=== PATIENT | female | born 1985 | race Caucasian/White ===

== ENCOUNTER 2018-08-02 14:13 | Emergency (ER) | payer MEDICAID ==
[~2018-08-02] VITALS: Ht 167.6 cm; Wt 68.5 kg
[2018-08-02 14:18] VITALS: BP 115/69; Ht 167.6 cm; Wt 68.5 kg
== END 2018-08-02 14:50 | disposition home or self-care (01) ==
LOC: ED 14:13
DX: F41.9 Anxiety disorder, unspecified (principal); Z90.49 Acquired absence of other specified parts of digestive tract; Z98.890 Other specified postprocedural states

== ENCOUNTER 2018-08-18 16:56 | Emergency (ER) | payer MEDICAID ==
[~2018-08-18] VITALS: Ht 167.6 cm; Wt 68.5 kg
[2018-08-18 16:58] VITALS: Ht 167.6 cm; Wt 68.5 kg
[2018-08-18 19:22] LABS: microscopic required? YES; urine erythrocyte TRACE (NEGATIVE)
[2018-08-18 19:23] LABS: BASOPHIL % 0.3 % (0-2); PLATELET COUNT 266 x10^3mcL (130-400); RED CELL DISTRIBUTION WIDTH 13.9 % (11.5-14.5)
[2018-08-18 19:39] LABS: CALCIUM 8.8 mg/dL (8.5-10.1); CARBON DIOXIDE 27.3 mmol/L (21-32); CHLORIDE SERUM 105 mmol/L (98-107); CREATININE SERUM 0.8 mg/dL (0.6-1.0); GFR1 > 60 mL/min; GLUCOSE SERUM 100 mg/dL (74-106); POTASSIUM SERUM 3.8 mmol/L (3.5-5.1); SODIUM SERUM 140 mmol/L (136-145)
[2018-08-18 19:48] VITALS: BP 136/89
[2018-08-18 19:51] LABS: ALBUMIN 3.6 g/dL (3.4-5.0); ALKALINE PHOSPHATASE 37 U/L (46-116); ALT/SGPT 20 U/L (14-59); AST/SGOT 11 U/L (15-37); BILIRUBIN TOTAL 0.4 mg/dL (0.20-1.00); CHOLESTEROL 260 mg/dL (<200); LIPASE 131 IU/L (73-393); T4(THYROXINE) 9.7 ug/dL (4.7-13.3); TOTAL PROTEIN, SERUM 7.6 g/dL (6.4-8.2)
[2018-08-18 19:52] LABS: HDL CHOLESTEROL 83 mg/dL (40-60)
[2018-08-18 20:00] LABS: C REACTIVE PROTEIN < 0.2 mg/dL (<=0.9)
[2018-08-18 20:01] LABS: AMPHETAMINE QUAL UR NONE DETECTED (See below)
[2018-08-18 20:10] LABS: ERYTHROCYTE SED RATE 17 mm/hr (0-20)
== END 2018-08-18 20:05 | disposition home or self-care (01) ==
LOC: ED 16:56
PROVIDERS: Emergency Medicine
DX: F41.9 Anxiety disorder, unspecified (principal); Z98.890 Other specified postprocedural states; Z90.89 Acquired absence of other organs
CPT/HCPCS: 36415

== ENCOUNTER 2018-09-10 22:07 | Emergency (ER) | payer MEDICAID ==
[~2018-09-10] VITALS: Ht 167.6 cm; Wt 68.5 kg
[2018-09-10 22:18] VITALS: Ht 167.6 cm; Wt 68.5 kg
[2018-09-11 01:37] VITALS: BP 126/77
== END 2018-09-11 01:37 | disposition home or self-care (01) ==
LOC: ED 22:07
DX: R51 Headache (principal); R11.0 Nausea; H53.8 Other visual disturbances; F41.9 Anxiety disorder, unspecified; Z90.49 Acquired absence of other specified parts of digestive tract; Z98.890 Other specified postprocedural states
CPT/HCPCS: J1885

== ENCOUNTER 2018-10-03 15:38 | Emergency (ER) | payer MEDICAID ==
[~2018-10-03] VITALS: Ht 167.6 cm; Wt 66.7 kg
[2018-10-03 15:42] VITALS: Ht 167.6 cm; Wt 66.7 kg
[2018-10-03 16:56] VITALS: BP 122/67
== END 2018-10-03 16:56 | disposition home or self-care (01) ==
LOC: ED 15:38
DX: M54.5 Low back pain (principal); F41.9 Anxiety disorder, unspecified; Z90.89 Acquired absence of other organs; Z98.890 Other specified postprocedural states

== ENCOUNTER 2019-03-27 15:09 | Emergency (ER) | payer MEDICAID ==
[~2019-03-27] VITALS: Ht 167.6 cm; Wt 66.7 kg
[2019-03-27 15:12] VITALS: Ht 167.6 cm; Wt 66.7 kg
[2019-03-27 18:45] VITALS: BP 125/87
== END 2019-03-27 18:45 | disposition home or self-care (01) ==
LOC: ED 15:09
DX: F41.0 Panic disorder [episodic paroxysmal anxiety] (principal); Z90.89 Acquired absence of other organs

== ENCOUNTER 2019-06-14 19:12 | Emergency (ER) | payer MEDICAID ==
[~2019-06-14] VITALS: Ht 167.6 cm; Wt 69.9 kg
[2019-06-14 19:30] VITALS: Ht 167.6 cm; Wt 69.9 kg
[2019-06-14 20:04] VITALS: BP 120/63
== END 2019-06-14 20:04 | disposition home or self-care (01) ==
LOC: ED 19:12
DX: R51 Headache (principal); Z90.49 Acquired absence of other specified parts of digestive tract
CPT/HCPCS: J1885; J2765

== ENCOUNTER 2019-06-18 18:49 | Emergency (ER) | payer MEDICAID ==
[~2019-06-18] VITALS: Ht 167.6 cm; Wt 72.1 kg
[2019-06-18 18:55] VITALS: Ht 167.6 cm; Wt 72.1 kg
[2019-06-18 20:14] VITALS: BP 134/58
== END 2019-06-18 20:14 | disposition home or self-care (01) ==
LOC: ED 18:49
DX: R51 Headache (principal); Z98.890 Other specified postprocedural states; Z90.49 Acquired absence of other specified parts of digestive tract
CPT/HCPCS: J1885

== ENCOUNTER 2019-06-24 13:54 | Emergency (ER) | payer MEDICAID ==
[~2019-06-24] VITALS: Ht 167.6 cm; Wt 73.5 kg
[2019-06-24 14:00] VITALS: Ht 167.6 cm; Wt 73.5 kg
[2019-06-24 16:18] LABS: BASOPHIL % 0.5 % (0-2); PLATELET COUNT 343 x10^3mcL (130-400); RED CELL DISTRIBUTION WIDTH 14.4 % (11.5-14.5)
[2019-06-24 16:25] LABS: UA SPECIFIC GRAVITY >=1.030 (1.005-1.035); microscopic required? YES; urine erythrocyte NEGATIVE (NEGATIVE)
[2019-06-24 16:28] LABS: CARBON DIOXIDE 31.4 mmol/L (21-32); CHLORIDE SERUM 105 mmol/L (98-107); CREATININE SERUM 0.8 mg/dL (0.6-1.0); GFR1 > 60 mL/min; GLUCOSE SERUM 67 mg/dL (74-106); POTASSIUM SERUM 3.8 mmol/L (3.5-5.1); SODIUM SERUM 142 mmol/L (136-145)
[2019-06-24 16:33] LABS: ALBUMIN 4.1 g/dL (3.4-5.0); ALKALINE PHOSPHATASE 59 U/L (46-116); ALT/SGPT 28 U/L (14-59); AST/SGOT 15 U/L (15-37); BILIRUBIN TOTAL 0.4 mg/dL (0.20-1.00); TOTAL PROTEIN, SERUM 7.7 g/dL (6.4-8.2)
[2019-06-24 16:35] LABS: AMPHETAMINE QUAL UR NONE DETECTED (See below)
[2019-06-24 16:42] LABS: T3 TOTAL 1.11 ng/mL
[2019-06-24 16:46] LABS: FREE T4 1.02 ng/dL (0.76-1.46); FREE THYROXINE INDEX 2.2 ug/dL (1.4-4.5); T4(THYROXINE) 7.1 ug/dL (4.7-13.3)
[2019-06-24 17:47] VITALS: BP 99/52
== END 2019-06-24 17:47 | disposition home or self-care (01) ==
LOC: ED 13:54
PROVIDERS: Emergency Medicine
DX: R51 Headache (principal); N39.0 Urinary tract infection, site not specified; Z90.89 Acquired absence of other organs; Z98.890 Other specified postprocedural states
CPT/HCPCS: 36415; 84439; G0480

== ENCOUNTER 2019-08-24 02:09 | Emergency (ER) | payer MEDICAID ==
[~2019-08-24] VITALS: Ht 167.6 cm; Wt 70.0 kg
[2019-08-24 03:56] VITALS: BP 118/90
== END 2019-08-24 03:56 | disposition home or self-care (01) ==
LOC: ED 02:09
DX: R51 Headache (principal); Z98.890 Other specified postprocedural states; Z90.89 Acquired absence of other organs

== ENCOUNTER 2019-08-27 16:38 | Emergency (ER) | payer MEDICAID ==
[~2019-08-27] VITALS: Ht 167.6 cm; Wt 69.9 kg
[2019-08-27 16:43] VITALS: Ht 167.6 cm; Wt 69.9 kg
[2019-08-27 20:47] VITALS: BP 124/84
== END 2019-08-27 20:22 | disposition home or self-care (01) ==
LOC: ED 16:38
DX: G44.209 Tension-type headache, unspecified, not intractable (principal); Z90.49 Acquired absence of other specified parts of digestive tract; Z98.890 Other specified postprocedural states
CPT/HCPCS: J1885; J2765

== ENCOUNTER 2019-11-10 16:31 | Emergency (ER) | payer MEDICAID ==
[~2019-11-10] VITALS: Ht 167.6 cm; Wt 65.3 kg
[2019-11-10 16:38] VITALS: BP 103/55; Ht 167.6 cm; Wt 65.3 kg
== END 2019-11-10 17:21 | disposition home or self-care (01) ==
LOC: ED 16:31
DX: L03.011 Cellulitis of right finger (principal); Z98.890 Other specified postprocedural states; Z90.89 Acquired absence of other organs